=== PATIENT | male | born 1955 | race Caucasian/White ===

== ENCOUNTER → 2016-10-21 | Outpatient (CLI) | payer MEDICARE, OTHER ==
[~2016-10-21] MED LIST: ALBU8.5H2 INH; AML5T PO; ASPI325T4 PO; ATOR10TA PO; B 12 PO; CEPH-331 PO; COEN1CAP2 PO; CYAN10006 PO; EXEN2VIA SQ; HYDR-3702 PO; METF500T4 PO; MMT17NA NSEACH; OMEG1CAP61 PO
[2016-10-21 16:18] LABS: BASOPHILS % (AUTO) 1 % (0-2); EOSINOPHILS # (AUTO) 0.4 10^3uL; EOSINOPHILS % (AUTO) 4 % (0-4); LYMPHOCYTES # (AUTO) 2.8 X10^3; MEAN CORPUSCULAR HEMOGLOBIN 29.3 PG (26.0-34.0); MEAN CORPUSCULAR HGB CONC 33.2 g/dL (31.0-37.0); MEAN CORPUSCULAR VOLUME 88 FL (80-100); MEAN PLATELET VOLUME 10.2 FL (6.0-9.5); MONOCYTES # (AUTO) 1.2 X10^3; MONOCYTES % (AUTO) 10 % (3-11); NEUTROPHILS % (AUTO) 61 % (51-67); PLATELET COUNT 275 10^3uL (150-450)
[2016-10-21 16:32] LABS: ALBUMIN 4.6 g/dL (3.4-5.0); CALCULATED IONIZED CALCIUM 3.8 mg/dL (3.8-4.6); TOTAL PROTEIN 8.6 g/dL (6.4-8.5)
--- NOTE | 2016-10-21 17:26 | Diagnostic Imaging Report ---
INDICATION: Coronary artery disease, history of pulmonary embolism, hypertension, patient reports fainting. COMPARISON STUDY: Chest from 01/17/16. FINDINGS: Frontal and lateral views of the chest demonstrate the heart size to be stable and upper normal in size. Lungs are clear. The vascularity is normal. There are no pleural effusions. IMPRESSION: There are no acute findings. Dictated by: Dictated on workstation # [id number]
[2016-10-21 19:50] LABS: BILIRUBIN,URINE Negative (Negative); CLARITY,URINE Clear; COLOR,URINE Yellow; GLUCOSE, URINE (UA) Negative (Negative); LEUKOCYTE ESTERASE ,URINE Negative (Negative); PH,URINE 5.5 (5.0 - 8.0); UROBILINOGEN,URINE 0.2 mg/dL (0.2-1.0)
[2016-10-21 20:01] LABS: RBC,URINE None Seen /HPF; URINE CENTRIFUGED VOLUME 12 mL
== END ==
LOC: LAB 15:51
PROVIDERS: ATTEND Family Medicine
DX: I25.10 Atherosclerotic heart disease of native coronary artery without angina pectoris (principal); Z86.711 Personal history of pulmonary embolism; I10 Essential (primary) hypertension; R55 Syncope and collapse; E11.9 Type 2 diabetes mellitus without complications
CPT/HCPCS: 36415; 71020; 80053; 81003; 81015; 83721; 84443; 85025